=== PATIENT | female | born 1990 | race Caucasian/White ===

== ENCOUNTER → 2018-10-23 | Outpatient (CLI) | payer BC ==
[~2018-10-23] MED LIST: NO HOME MEDICATIONS
[2018-10-23 17:08] LABS: ALBUMIN 3.9 gm/dL (3.5-5.0); BILIRUBIN,TOTAL 0.5 mg/dL (0.0-1.0); CALCIUM 9.2 mg/dL (8.4-10.2); CHOLESTEROL RISK RATIO 6.8; CREATININE, serum 0.66 mg/dL (0.52-1.25); POTASSIUM 4.2 mmol/L (3.4-5.0); TOTAL PROTEIN 7.5 gm/dL (6.4-8.2)
== END ==
LOC: ZCOL.LAB 16:15
PROVIDERS: Family Medicine
DX: E78.00 Pure hypercholesterolemia, unspecified (principal)

== ENCOUNTER 2021-08-30 18:59 | Outpatient (CLI) | payer BC ==
[~2021-08-30] VITALS: Ht 172.7 cm; Wt 137.3 kg
[2021-08-30 19:15] VITALS: BP 134/91; PULSE 86
[2021-08-30 20:00] VITALS: BP 140/92; PULSE 81
[2021-08-30] MEDS ORDERED: PRENATAL FORMU1 EAC3 PO (20:24)
[2021-08-30] MEDS ORDERED: WELLBUTRIN XL150 MG PO (20:25)
[2021-08-30 20:30] VITALS: BP 129/79; PULSE 75
[2021-08-30 21:30] VITALS: BP 140/90; PULSE 81
[2021-08-30 22:00] VITALS: BP 131/87; PULSE 86
--- NOTE | 2021-08-30 22:00 | NUR ---
FHT's difficult to maintain coninues tracing r/t pt's body habitus, feal movements, and pt's position in bed. Doppler 120's. Pt denies pain, loss of fluid, or vaginal bleeding. Pt reports feeling baby move "about she like she normally does at bedtime" Off monitor, discharge instructions reviewed with pt and spouse. Questions invited and answered. 5 Ambulatory off unit.
== END 2021-08-30 22:05 | disposition home or self-care (01) ==
LOC: LDRO 18:59 → LDR 19:10 → LDRO 22:05
DX: O26.853 Spotting complicating pregnancy, third trimester (principal); Z3A.35 35 weeks gestation of pregnancy
CPT/HCPCS: OP

== ENCOUNTER 2021-09-23 09:58 | Inpatient (IN) | payer BC ==
[~2021-09-23] VITALS: Ht 177.8 cm; Wt 139.5 kg
[~2021-09-23 09:58] MED LIST changes: +PRENATAL FORMU1 EAC3 PO; +WELLBUTRIN XL150 MG PO
[2021-09-24] VITALS (8 sets, daily range): BP systolic 134–177; BP diastolic 88–104; PULSE 80–104; TEMP 98.3
[2021-09-24 20:35] LABS: BASO % 0.3 % (0.0-2.0); EOS # 0.1 K/mm3 (0.0-0.7); EOS % 1.1 % (0-4.0); GRAN # 8.4 K/mm3 (1.4-6.5); GRAN % 67.9 % (42.2-75.2); HEMATOCRIT 37.7 % (37.0-47.0); HEMOGLOBIN 12.6 g/dl (12.5-16.0); LYMPH # 2.8 K/mm3 (1.2-3.4); LYMPH % 22.6 % (20.0-51.0); MEAN CELL VOLUME 90 fl (80.0-100.0); MEAN CORPUSCULAR HEMOGLOBIN 30 pg (27.0-31.0); MEAN CORPUSCULAR HGB CONC 33 g/dl (33.0-37.0); MEAN PLATELET VOLUME 11.2 fl (7.4-10.4); MONO # 0.9 K/mm3 (0.1-0.6); PLATELET COUNT 254 K/mm3 (130-400); RED BLOOD COUNT 4.21 M/mm3 (4.10-5.30); REDCELL DISTRIBUTION WIDTH-CV 15.8 % (11.5-14.5)
--- NOTE | 2021-09-24 21:24 | NUR ---
30 YO AT 39.1 TO LDR 6 FOR INDUCTION OF LABOR FOR ELEVATED BP'S IN . ORIENTED TO ROOM, INDUCTION PROCESS EXPLAINED TO PT AND , ALL QUESTIONS ANSWERED
--- NOTE | 2021-09-24 21:51 | NUR ---
CONSENTS SIGNED AND ADMISSION QUESTIONS AND ASSESSMENT COMPLETED
[2021-09-25] VITALS (78 sets, daily range): BP systolic 81–180; BP diastolic 42–109; PULSE 60–137; TEMP 97.6–98.5
--- NOTE | 2021-09-25 00:22 | NUR ---
[id number]: PT REPOSITIONED TO LEFT LATRAL. DIFFICULTY TRACING CONTRACTIONS DUE TO MATERANAL POSITION. PT DENIES FEELING CONTRACTIONS AT THIS TIME. REPORT INTERMITTENT "TIGHTENING."
--- NOTE | 2021-09-25 06:06 | NUR ---
EFM OFF, SALINE LOCK COVERED, PT UP FOR SHOWER
--- NOTE | 2021-09-25 10:00 | NUR ---
REPROT RECIEVED FROM ANIL GUAN AT THIS TIME
--- NOTE | 2021-09-25 18:30 | NUR ---
1830 UNCOMFORTABLE WITH EPID. PUSHED EPID BUTTON WITH NO RELIEF. LOUNGE CAR ATTENDANT NOTIFIED. 1840 SITTING ON SIDE OF BED TO REPLACE EPID. 184 SINGLE DOSE GIVEN. EPID CATH REMOVED AFTER. 190 EPI CATH IN. SEE ANESTHSIA RECORD FOR MORE INFORMATION.
--- NOTE | 2021-09-25 22:10 | NUR ---
2210 FUNDAS FIRM WITH MOD AMOUNT VAG DRAINAGE WITH FUNDAL CHECK AND FEW SMALL CLOTS PASSED.
--- NOTE | 2021-09-25 22:24 | NUR ---
[address] ROLES WITH NO CERVICAL CHANGE. C/O EPID NOT WORKING. UNCOMFORTABLE WITH CONTRACTIONS. C/SECT DISCUSSED WITH PT AND . 2049 SHARON OWENS. 2051 C/SECT CALLED. SURGERY SITE PREPPED. 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
--- NOTE | 2021-09-25 23:50 | NUR ---
2350 REG DIET TAKEN. IV INF AND TO INT. PERICARE DONE. ABD BINDER ON. MOVES WELL IN BED. PERCOCET 7.54 X1 PO FOR INC PAIN. BABY TO NSY AND LIGHTS OUT TO SLEEP
[2021-09-26] VITALS (7 sets, daily range): BP systolic 114–129; BP diastolic 60–93; PULSE 75–112; TEMP 97.8–98
[2021-09-27 08:15] VITALS: BP 116/75; PULSE 85; TEMP 97.6
[2021-09-27] MEDS ORDERED: IBU800 M1 PO (08:49)
[2021-09-27] MEDS ORDERED: PERCOCET 325 MG1 TA3 PO (08:49)
--- NOTE | 2021-09-27 14:15 | NUR ---
Discharge instructions and follow up care reviewed with pt and at the bedside. Both verbalized an understanding, agreed with the plan and states no questions or concerns at this time.
== END 2021-09-27 14:25 | disposition home or self-care (01) | DRG 788 ==
LOC: LDR 09-24 09:57 → OB 09-25 22:50
PROVIDERS: ADMIT Obstetrics & Gynecology
PROC: 10D00Z1 Extraction of Products of Conception, Low, Open Approach (ICD-10-PCS; principal; 2021-09-24)
PROC: 3E0P7VZ Introduction of Hormone into Female Reproductive, Via Natural or Artificial Opening (ICD-10-PCS; 2021-09-24)
PROC: 3E033VJ Introduction of Other Hormone into Peripheral Vein, Percutaneous Approach (ICD-10-PCS; 2021-09-24)
DX: O13.4 Gestational [pregnancy-induced] hypertension without significant proteinuria, complicating childbirth (principal); O62.1 Secondary uterine inertia; O99.214 Obesity complicating childbirth; E66.01 Morbid (severe) obesity due to excess calories; O99.344 Other mental disorders complicating childbirth; F41.9 Anxiety disorder, unspecified; F32.A Depression, unspecified; O99.62 Diseases of the digestive system complicating childbirth; K21.9 Gastro-esophageal reflux disease without esophagitis; O75.89 Other specified complications of labor and delivery; G43.909 Migraine, unspecified, not intractable, without status migrainosus; O69.81X0 Labor and delivery complicated by cord around neck, without compression, not applicable or unspecified; Z3A.39 39 weeks gestation of pregnancy; Z37.0 Single live birth; Z23 Encounter for immunization
CPT/HCPCS: J0690; J1885; J2175; J2370; J2400; J2405; J2590; J2704; J3010; J7120

== ENCOUNTER → 2021-09-30 | Outpatient (CLI) | payer BC ==
[~2021-09-30] MED LIST changes: +IBU800 M1 PO; +PERCOCET 325 MG1 TA3 PO
--- NOTE | 2021-09-30 14:19 | NUR ---
Pt, Arabella Rico, presents for outpatient consult with 5 day old baby girl, Thuy Rico, and her spouse Walter. Pt states Thuy is not latching well, and her weight was low at the doctor's appointment yesterday. Thuy was born by c/section on [birth year] and weighed 7#11.5oz (3500 gsm). Family reports she weighed 6#15oz at the doctor appt yesterday. They were advised to supplement after , and report that Thuy is now receiving 1-2oz per feeding by bottle after nursing. Pt is puming about every 3-5 hours and collecting ~0.5oz Today Thuy weighs 7#4.1oz (3292 gms). The family states Thuy has increased voids and stools, and the stools are now green. assists pt in getting Thuy to latch better, advising on support of breast and compression of areola to get a deeper latch. Pt states the latch is stronger, and occassional swallows are noted. After bilaterally Thuy has a gain of 28 gms (1 oz). Thuy is offered 2oz formula, taking only about 1oz. Impression: Shallow latch and low milk supply. POC: Breastfeed, supplement 1.5-2.5oz EBM or formula, based on how well she nurses. Follow with 10-15 minutes of pumping after , saving milk for supplement. Continue working on getting a deeper latch with compression of areola. F/U: Thuy has an appointment following this at [facility]. Pt is advised to contact this LC early next week to discuss milk volume and follow up consult. Questions invited and answered.
== END ==
LOC: LAC 08:25
DX: Z39.1 Encounter for care and examination of lactating mother (principal); Z71.89 Other specified counseling

== ENCOUNTER → 2024-05-08 | Outpatient (CLI) | payer BC ==
[~2024-05-08] MED LIST changes: +NORCO 325 MG-51 TAB PO; +PROBIOTIC PO; +VITAMIN C500 MG PO; +VITAMIN D3 PO; +WELLBUTRIN XL300 M1 PO
== END ==
LOC: COL.RAD 09:42
DX: K80.20 Calculus of gallbladder without cholecystitis without obstruction (principal)

== ENCOUNTER 2024-06-12 06:21 | Day surgery (SDC) | payer BC ==
[2024-06-12] VITALS (10 sets, daily range): BP systolic 92–124; BP diastolic 52–87; PULSE 76–90; TEMP 96.9–97.5
[~2024-06-12] VITALS: Ht 170.2 cm; Wt 114.7 kg
[~2024-06-12 06:21] MED LIST changes: -NORCO 325 MG-51 TAB PO; -PROBIOTIC PO; -VITAMIN C500 MG PO; -VITAMIN D3 PO; -WELLBUTRIN XL300 M1 PO
[2024-06-12] MEDS ORDERED: WELLBUTRIN XL300 M1 PO (07:24)
[2024-06-12] MEDS ORDERED: PROBIOTIC PO (07:24)
[2024-06-12] MEDS ORDERED: VITAMIN D3 PO (07:25)
[2024-06-12] MEDS ORDERED: VITAMIN C500 MG PO (07:25)
[2024-06-12] MEDS ORDERED: Midazolam 2 MG/2 ML VIAL ONE ×2 (07:27→07:47)
[2024-06-12] MEDS ORDERED: fentaNYL 50 MCG/ML 5 ML VIAL ONE (07:27)
[2024-06-12] MEDS ORDERED: Rocuronium 50 MG/5 ML Multi-Dose VIAL ONE ×3 (07:27→08:49)
[2024-06-12] MEDS ORDERED: Glycopyrrolate 0.2 MG/ML 1 ML VIAL ONE (07:28)
[2024-06-12] MEDS ORDERED: Lidocaine PF 2% (20 MG/ML) 5 ML VIAL ONE (07:28)
[2024-06-12] MEDS ORDERED: Ketorolac 30 MG/ML VIAL ONE (07:30)
[2024-06-12] MEDS ORDERED: Furosemide 40 MG/4 ML VIAL ONE (07:30)
[2024-06-12] MEDS ORDERED: Ondansetron 4 MG/2 ML VIAL ONE (07:30)
[2024-06-12] MEDS ORDERED: dexAMETHasone 10 MG/ML VIAL ONE (07:30)
[2024-06-12] MEDS ORDERED: LR 1,000 ML IV SCH (07:45)
[2024-06-12] MEDS ORDERED: Famotidine 20 MG TAB PO SCH (07:45)
[2024-06-12] MEDS ORDERED: Scopolamine 1 MG Delivered 3-Day PATCH TD SCH (07:45)
[2024-06-12] MEDS ORDERED: Meclizine 25 MG TAB PO SCH (07:45)
[2024-06-12] MEDS ORDERED: Iohexol 350 - 100 ML VIAL BILE DUCT ONE (08:39)
[2024-06-12] MEDS ORDERED: Phenylephrine 10 MG/ML VIAL ONE (08:44)
[2024-06-12] MEDS ORDERED: Succinylcholine PF 200 MG/10 ML SYRINGE IV ONE (08:50)
[2024-06-12] MEDS ORDERED: Albuterol 90 MCG/PUFF 8 GM MDI IH ONE (09:03)
[2024-06-12] MEDS ORDERED: NORCO 325 MG-51 TAB PO (09:40)
[2024-06-12] MEDS ORDERED: Morphine 4 MG/ML VIAL IV PRN (09:45)
[2024-06-12] MEDS ORDERED: Ondansetron 4 MG/2 ML VIAL IV PRN ×2 (09:45→10:00)
[2024-06-12] MEDS ORDERED: HYDROmorphone 1 MG/1 ML SYRINGE [PACU/SDC ONLY] IV SCH (09:49)
[2024-06-12] MEDS ORDERED: HYDROmorphone 1 MG/1 ML SYRINGE [PACU/SDC ONLY] IV PRN (10:00)
[2024-06-12] MEDS ORDERED: fentaNYL 50 MCG/ML 1 ML SYRINGE/VIAL [PACU/SDC ONLY] IV PRN (10:00)
[2024-06-12] MEDS ORDERED: hydrALAZINE 20 MG/ML 1 ML VIAL IV PRN (10:00)
--- NOTE | 2024-06-12 10:10 | NUR ---
PATIENT RETURNED TO BAY 1 VIA CART, ALERT AND ORIENTED X3. REPORTS 5/10 SHOULDER PAIN DESCRIBED INTERMITTENT AND BELIEVED BY PATIENT TO BE GAS PAIN. DENIES PAIN INTERVENTIONS. WARM BLANKET IN PLACE. DENIES NAUSEA AND SHORTNESS OF BREATH. BREATHING REGULAR AND UNLABORED ON ROOM AIR. SKIN WARM AND DRY. NURSE HANDOFF COMPLETED IN ROOM WITH INSPECTION OF SURGICAL SITES. 3 BANDAIDS PRESENT TO ABDOMEN. ALL 3 BANDAIDS CLEAN, DRY AND INTACT. SURROUNDING SKIN INTACT. PATIENT HAD QUIQUE CRACKERS AND GRAPE JUICE. BOTH FOOD AND DRINK TOLERATED WELL, NO DYSPHAGIA.
--- NOTE | 2024-06-12 10:58 | NUR ---
DISCHARGE TEACHING COMPLETED WITH PRINTED EDUCATION AND INSTRUCTIONS SENT HOME WITH PATIENT. PATIENT VERBALIZED UNDERSTANDING.
--- NOTE | 2024-06-12 10:58 | NUR ---
1040: PATIENT HAD WATER AND PUDDING. 1058: PATIENT AMBULATED TO RESTROOM WITH STEADY GAIT AND VOIDED WITHOUT DIFFICULTY.
--- NOTE | 2024-06-12 12:12 | NUR ---
1207: PATIENT STATES ABDOMEN IS SORE, DECLINES INTERVENTIONS. DENIES NAUSEA. TOLERATING FOOD AND DRINK. ALL 3 ABDOMINAL BANDAIDS CLEAN, DRY AND INTACT. IV REMOVED. GAUZE AND COBAN PLACED OVER SITE. 1212: PATIENT DISCHARGED HOME WITH SPOUSE TRANSPORT.
[2024-06-12] MEDS ORDERED: EPINEPHrine 1 MG/10 ML (1:10,000) SYRINGE ONE (13:54)
== END 2024-06-12 12:12 | disposition home or self-care (01) ==
LOC: SDCO 06:21
DX: K80.10 Calculus of gallbladder with chronic cholecystitis without obstruction (principal); K21.9 Gastro-esophageal reflux disease without esophagitis
CPT/HCPCS: J0171; J1100; J1170; J1885; J1940; J2250; J2371; J2405; J2704; J3010; J7120; Q9967